=== PATIENT | female | born 1995 | race American Indian/Alaskan Native ===

== ENCOUNTER 2019-04-02 13:34 | Emergency (ER) | payer MEDICAID ==
--- NOTE | 2019-04-02 15:34 | Event Note ---
ED Screening Note ED Screening Note: This initial assessment/diagnostic orders/clinical plan/treatment(s) is/are subject to change based on patients health status, clinical progression and re- assessment by fellow clinical providers in the ED. Further treatment and workup at subsequent clinical providers discretion. Patient/guardian urged not to elope from the ED as their condition may be serious if not clinically assessed and managed. Initial orders include: 23yo BF states that she is 7 weeks with R lower abdominal pain x 2 d ays. Nausea and vomiting has occurred as well. She states that she tried Radha razia with no relief. She denies vaginal bleeding
[2019-04-02 16:39] LABS: Alanine Aminotransferase 16 units/L (7-56); Albumin 3.9 g/dL (3.9-5); BUN/Creatinine Ratio 13; Blood Urea Nitrogen 8 mg/dL (7-17); Calcium 8.9 mg/dL (8.4-10.2); Hemolysis Index 6
[2019-04-02 16:50] LABS: Bacteria,Urine 1+ /HPF (Negative); Bilirubin,Urine NEG (Negative); Blood,Urine NEG (Negative); Color,Urine Yellow (Yellow); Mucus,Urine 2+ /HPF
[2019-04-02] MEDS ORDERED: NACL 0.9% 1000 ML 1,000 ML IV ONE (17:18)
[2019-04-02] MEDS ORDERED: ZOFRAN IV ONE (17:18)
[2019-04-02 17:25] LABS: HCG Qualitative,Urine Positive (Negative)
[2019-04-02 18:29] VITALS: BP 102/50
--- NOTE | 2019-04-02 18:57 | Ultrasound Report ---
US OB transvaginal, US OB <= 14 weeks fetus INDICATION / CLINICAL INFORMATION: pelv pain. COMPARISON: None available. FINDINGS: Single, viable intrauterine . heart rate 122. [place]-rump length measures 8.0 mm, corresponding to a gestational age of 6 weeks 5 days. A subtle area of decreased echogenicity adjacent to the gestational sac could represent minimal subch orionic hemorrhage. Both ovaries contain benign appearing cysts. Minimal free fluid. IMPRESSION: 1. Single, viable 6 week 5 day intrauterine . 2. Questionable small area of subchorionic hemorrhage adjacent to the gestational sac. Signer Name: Houston Hartman MD Signed: 04/02/2019 6:53 PM Workstation Name: [id number]
--- NOTE | 2019-04-02 18:58 | Emergency Department Report ---
ED HPI - General Chief complaint: Abdominal Pain Stated complaint: 7WKS /FEVER/DIZZY/PAIN Time Seen by Provider: 04/02/19 18:54 Source: patient Mode of arrival: Ambulatory Limitations: No Limitations - History of Present Illness Initial comments: 23-year-old female, 7 weeks , presents to ED with nausea and dizziness. Patient states she had a low-grade temp of 99 earlier today. Patient states she called her OB at [facility] and was instructed to come to the ER. Patient reported having mild left lower quadrant pain, which is now resolving. She denies dysuria, however reports urinary frequency. She denies diarrhea. MD Complaint: abdominal pain -: This afternoon Location: other ([facility]) Radiation: none Severity: mild Quality: cramping Consistency: now resolved Improves with: none Worsens with: none Associated symptoms: nausea/vomiting. denies: vaginal bleeding, dysuria Vaginal bleeding: none :: Yes Number of weeks : 7 Pre-jorge care: followed by OB ([facility]) - Related Data Previous Rx's Medication Instructions Recorded Last Taken Type Promethazine [Phenergan TAB] 25 mg PO Q6HR PRN #20 tab 04/02/19 Unknown Rx cephALEXin [Keflex] 500 mg PO Q12HR 5 Days #10 cap 04/02/19 Unknown Rx Allergies Allergy/AdvReac Type Severity Reaction Status Date / Time No Known Allergies Allergy Verified 04/02/19 15:12 ED Review of Systems ROS: Stated complaint: 7WKS /FEVER/DIZZY/PAIN Other details as noted in HPI Comment: All other systems reviewed and negative Constitutional: fever. denies: chills ENT: denies: throat pain Respiratory: denies: cough Gastrointestinal: abdominal pain, nausea. denies: diarrhea Genitourinary: frequency. denies: dysuria ED Past Medical Hx - Past Medical History Previous Medical History?: No - Surgical History Past Surgical History?: No - Social History Smoking Status: Never Smoker - Medications Home Medications: Home Medications Medication Instructions Recorded Confirmed Last Taken Type Promethazine [Phenergan TAB] 25 mg PO Q6HR PRN #20 tab 04/02/19 Unknown Rx cephALEXin [Keflex] 500 mg PO Q12HR 5 Days #10 cap 04/02/19 Unknown Rx ED Physical Exam - General Limitations: No Limitations General appearance: alert, in no apparent distress - Head Head exam: Present: atraumatic, normocephalic - Eye Eye exam: Present: normal appearance, PERRL, EOMI - ENT ENT exam: Present: mucous membranes moist - Neck Neck exam: Present: normal inspection - Respiratory Respiratory exam: Present: normal lung sounds bilaterally. Absent: respiratory distress - Cardiovascular Cardiovascular Exam: Present: regular rate, normal rhythm - GI/Abdominal GI/Abdominal exam: Present: soft. Absent: distended, tenderness - Extremities Exam Extremities exam: Present: normal inspection - Neurological Exam Neurological exam: Present: alert, oriented X3 - Psychiatric Psychiatric exam: Present: normal affect, normal mood - Skin Skin exam: Present: warm, dry, intact, normal color ED Course Vital Signs 04/02/19 04/02/19 15:10 18:26 Temperature 98.2 F 98.7 F Pulse Rate 68 70 Respiratory 18 16 Rate Blood Pressure 102/50 Blood Pressure 129/64 [Right] O2 Sat by Pulse 100 100 Oximetry ED Medical Decision Making - Lab Data Result diagrams: 04/02/19 19:02 04/02/19 15:39 - Radiology Data Radiology results: report reviewed, image reviewed - Medical Decision Making 23-year-old female presents to ED with abdominal pain and fever. Patient is afebrile. Abdominal pain is currently resolved, she is nontender on exam. Ultrasound shows live IUP heart rate in the 120s. Possible subchorionic hemorrhage as well. Patient will be diagnosed with threatened . Advised to return to ED if abdominal pain returns or worsens, also if she develops any vaginal bleeding. Patient advised on with her [employer]. Will discharge at this time. Vital signs normal. - Differential Diagnosis ectopic , UTI, miscarriage Critical care attestation.: If time is entered above; I have spent that time in minutes in the direct care of this critically ill patient, excluding procedure time. ED Disposition Clinical Impression: UTI (urinary tract infection), Threatened miscarriage Disposition: - TO HOME OR SELFCARE Is pt being admited?: No Condition: Stable Instructions: Threatened Miscarriage (ED), Urinary Tract Infection in Women (ED) Prescriptions: cephALEXin [Keflex] 500 mg PO Q12HR 5 Days #10 cap Promethazine [Phenergan TAB] 25 mg PO Q6HR PRN #20 tab PRN Reason: Nausea Referrals: PRIMARY CARE, [Primary Care Provider] - 3-5 Days [facility] [Provider Group] - 3-5 Days Time of Disposition: 19:23
[2019-04-02 19:16] LABS: Basophils % (Auto) 0.4 % (0.0-1.8); Eosinophils # (Auto) 0.1 K/mm3 (0.0-0.4); Eosinophils % (Auto) 0.7 % (0.0-4.3); Hematocrit 35.9 % (30.3-42.9); Hemoglobin 11.7 gm/dl (10.1-14.3); Lymphocytes # (Auto) 2.6 K/mm3 (1.2-5.4); Lymphocytes % (Auto) 31.2 % (13.4-35.0); Mean Corpuscular HGB Conc 33 % (30-34); Mean Corpuscular Volume 84 fl (79-97); Monocytes # (Auto) 0.6 K/mm3 (0.0-0.8); Monocytes % (Auto) 7.2 % (0.0-7.3); Platelet Count 237 K/mm3 (140-440); Red Blood Count 4.29 M/mm3 (3.65-5.03); Red Cell Distribution Width 14.2 % (13.2-15.2)
== END 2019-04-02 19:30 | disposition home or self-care (01) ==
LOC: ED 13:34
DX: O20.0 Threatened abortion (principal); O23.41 Unspecified infection of urinary tract in pregnancy, first trimester; Z3A.01 Less than 8 weeks gestation of pregnancy
CPT/HCPCS: 36415; 76801; 76817; 80053; 81001; 81025; 85025; 87086; 96361; 96374; 99284; J2405; J7030

== ENCOUNTER 2019-07-29 23:21 | Outpatient (CLI) | payer MEDICAID ==
[2019-07-29] MEDS ORDERED: LACTATED RINGERS 1,000 ML IV ONE (23:25)
[2019-07-30 00:17] VITALS: BP 114/57
[2019-07-30 00:18] LABS: Bacteria,Urine 1+ /HPF (Negative); Bilirubin,Urine NEG (Negative); Blood,Urine NEG (Negative); Color,Urine Yellow (Yellow); Mucus,Urine 2+ /HPF; Protein,Urine <15 mg/dL mg/dL (Negative)
== END 2019-07-30 00:45 | disposition home or self-care (01) ==
LOC: TRG 23:21
PROVIDERS: ATTEND Obstetrics & Gynecology
DX: O26.892 Other specified pregnancy related conditions, second trimester (principal); R10.9 Unspecified abdominal pain; Z3A.24 24 weeks gestation of pregnancy
CPT/HCPCS: 81001